=== PATIENT | female | born 1965 | race Two or more races ===

== ENCOUNTER 2022-08-09 11:37 | Emergency (ER) | payer OTHER ==
[~2022-08-09] VITALS: Ht 160 cm; Wt 56.7 kg
[2022-08-09] MEDS ORDERED: ZOLPIDEM TARTRA10 MG PO (12:20)
[2022-08-09] MEDS ORDERED: SUCRALFATE1 GM PO (12:20)
[2022-08-09] MEDS ORDERED: MELOXICAM7.5 MG PO (12:20)
[2022-08-09] MEDS ORDERED: LEVO-T25 MCG PO (12:20)
[2022-08-09] MEDS ORDERED: METHOTREXATE2.5 MG PO (12:20)
== END 2022-08-09 14:46 | disposition home or self-care (01) ==
LOC: ER 11:37
DX: R10.9 Unspecified abdominal pain (principal); I10 Essential (primary) hypertension; Z88.8 Allergy status to other drugs, medicaments and biological substances